=== PATIENT | male | born 1950 | race Caucasian/White ===

== ENCOUNTER → 2017-07-13 | Day surgery (SDC) | payer MEDICARE ==
[~2017-07-13] MED LIST: AMLO10TA2 PO; ATEN50TA PO; ATOR10TA60 PO; DOCU50CA9 PO; EDOX60TA PO; IV RINGERS SOLUTION,LACTATED 1,000 ML BAG. IV ONE; IV RINGERS SOLUTION,LACTATED 1,000 ML IV ONE; LIDOCAINE 2% PF Vial for OR 5 ML VIAL. ONE; PROPOFOL 10,000 MCG/ML (20ML) VIAL IV ONE; PROPOFOL 40 ML IV ONE
[2017-07-13 16:01] VITALS: BP 120/77
== END | disposition home or self-care (01) ==
LOC: SURG 12:25
PROVIDERS: ATTEND Internal Medicine Gastroenterology
DX: K51.90 Ulcerative colitis, unspecified, without complications (principal); K64.8 Other hemorrhoids; K57.30 Diverticulosis of large intestine without perforation or abscess without bleeding; I10 Essential (primary) hypertension; E78.00 Pure hypercholesterolemia, unspecified; Z86.73 Personal history of transient ischemic attack (TIA), and cerebral infarction without residual deficits; F17.200 Nicotine dependence, unspecified, uncomplicated; Z90.49 Acquired absence of other specified parts of digestive tract; Z98.890 Other specified postprocedural states; M19.90 Unspecified osteoarthritis, unspecified site
CPT/HCPCS: 45378; 45380; J2704; J7120; J2001